=== PATIENT | female | born 1995 | race Two or more races ===

== ENCOUNTER 2021-04-01 16:32 | Emergency (ER) | payer OTHER ==
[2021-04-01 21:12] LABS: BASOPHIL 0.2 % (0-2); EOSINOPHIL 0 % (0-5); HCT 39.5 % (37.0-47.0); HGB 12.9 g/dl (12.5-16.0); LYMPHOCYTE 7.9 % (15-48); MCH 30.1 pg (25.0-31.0); MCHC 32.7 g/dL (32.0-36.0); MCV 92.1 fL (78.0-100.0); MONOCYTE 6.7 % (0-12); MPV 12.3 fL (6.0-9.5); NEUTROPHIL 84.8 % (41-80); NRBC 0; PLT 184 K/uL (150-400); RBC 4.29 M/uL (4.20-5.40); RDW 12.5 % (11.5-14.0)
[2021-04-01 21:41] LABS: BUN/CREAT RATIO (CALC) 15.3 RATIO; CREATININE 0.59 mg/dL (0.51-0.95); POTASSIUM 4.3 mmol/L (3.5-5.1)
[2021-04-01] MEDS ORDERED: FLEXERIL5 MG PO (23:49)
== END 2021-04-02 00:24 | disposition home or self-care (01) ==
LOC: FER 16:32
PROVIDERS: Nurse Practitioner Family
DX: M25.512 Pain in left shoulder (principal); R00.0 Tachycardia, unspecified; V49.40XA Driver injured in collision with unspecified motor vehicles in traffic accident, initial encounter; Y92.410 Unspecified street and highway as the place of occurrence of the external cause
CPT/HCPCS: 36415; 71045; 71275; 73060; 73090; 80048; 84484; 85025; 85379; 93005; J7030; Q9967